=== PATIENT | male | born 1980 | race Caucasian/White ===

== ENCOUNTER 2021-04-03 01:45 | Inpatient (IN) | payer OTHER ==
[2021-04-03 03:38] LABS: EOS % 1.2 % (0-4.5); HEMATOCRIT 43.5 % (35.4-49); HEMOGLOBIN 15.2 GM/dL (11.7-16.9); LYMPH % 39.4 % (8-40); MCH 31.5 pg (25.7-33.7); MCHC 34.8 g/dl (32.0-35.9); MEAN CELL VOLUME 90.3 fl (80-96); MEAN PLT VOLUME 8.5 fl (7.5-11.1); MONO % 7.5 % (3.8-10.2); NEUT % 50.9 % (42.8-82.8); PLATELET COUNT 268 10^3/uL (134-434); RBC 4.82 M/mm3 (4.00-5.60); RDW 13.9 % (11.9-15.9); WHITE BLOOD COUNT 7.9 K/mm3 (4.0-10.0)
[2021-04-03 04:02] LABS: CHLORIDE 109 mmol/L (98-107); SODIUM 140 mmol/L (136-145)
[2021-04-03 04:04] LABS: ANION GAP 4 MMOL/L (8-16); BLOOD UREA NITROGEN 9.2 mg/dL (7-18); CALCIUM 8.7 mg/dL (8.5-10.1); CO2 26 mmol/L (21-32); MAGNESIUM 2.3 mg/dL (1.8-2.4)
[2021-04-03 04:05] LABS: GLUCOSE,RANDOM 75 mg/dL (74-106)
[2021-04-03 04:07] LABS: CREATININE 0.8 mg/dL (0.55-1.3); SGOT/AST 15 U/L (15-37); SGPT/ALT 21 U/L (13-61)
[2021-04-03 04:09] LABS: BILIRUBIN,TOTAL 0.3 mg/dL (0.2-1); TOT PROT 7.1 g/dl (6.4-8.2)
[2021-04-03 04:10] LABS: ALK PHOS 107 U/L (45-117)
[2021-04-03 04:17] LABS: URINE APPEARANCE CLEAR; URINE BILIRUBIN NEGATIVE (NEGATIVE); URINE COLOR YELLOW; URINE GLUCOSE (UA) NEGATIVE (NEGATIVE); URINE KETONE NEGATIVE (NEGATIVE); URINE LEUK ESTERASE NEGATIVE (NEGATIVE); URINE NITRITE NEGATIVE (NEGATIVE); URINE PROTEIN NEGATIVE (NEGATIVE)
[2021-04-03 04:25] LABS: METHADONE, UR NEGATIVE (NEGATIVE); OPIATES, URI NEGATIVE (NEGATIVE); PHENCYCLIDINE,URINE NEGATIVE (NEGATIVE); URINE BENZODIAZEPINES NEGATIVE (NEGATIVE)
[2021-04-03 04:27] LABS: COCAINE, UR NEGATIVE (NEGATIVE); URINE AMPHETAMINES NEGATIVE (NEGATIVE); URINE BARBITURATES NEGATIVE (NEGATIVE)
[2021-04-03] MEDS ORDERED: PARoxetine HCL 10 MG TABLET PO SCH (11:45)
[2021-04-03] MEDS: PARoxetine HCL 20 MG TABLET PO SCH (15:15)
[2021-04-03] MEDS ORDERED: HALOPERIDOL 5 MG TABLET PO ONE (18:12)
[2021-04-03] MEDS ORDERED: LORazepam 2 MG TABLET PO ONE (18:12)
[2021-04-03] MEDS ORDERED: LORazepam 1 MG TABLET ONE (18:17)
[2021-04-03] MEDS ORDERED: PARoxetine HCL 10 MG TABLET ONE ×2 (18:17→18:19)
[2021-04-03] MEDS ORDERED: HALOPERIDOL LACTATE 5 MG/ML ONE (18:20)
[2021-04-03] MEDS ORDERED: LORazepam 1 MG TABLET PO ONE (23:29)
[2021-04-03 23:34] VITALS: BMI 25.1
[2021-04-04] MEDS ORDERED: ACETAMINOPHEN 1000 MG/100 ML VIAL IVPB ONE (02:21)
[2021-04-04] MEDS ORDERED: ACETAMINOPHEN 325 MG TABLET (FP) PO ONE (02:23)
[2021-04-04] MEDS: PARoxetine HCL 20 MG TABLET PO SCH (09:11)
[2021-04-04] MEDS ORDERED: PATIENT'S OWN MEDICATION (NON-FORMULARY) (Paroxetine Hcl [Paxil] 40 MG Tablet) PO SCH (10:00)
[2021-04-04] MEDS: ACETAMINOPHEN 325 MG TABLET (FP) PO PRN ×2 (11:31→21:34)
[2021-04-04] MEDS: LORazepam 1 MG TABLET PO PRN ×2 (11:31→18:11)
[2021-04-04] MEDS: DIVALPROEX SODIUM 250 MG TABLET E.C. PO SCH (21:36)
[2021-04-05] MEDS: LORazepam 1 MG TABLET PO PRN ×3 (00:54→22:37)
[2021-04-05] MEDS ORDERED: PT OWN MED DRAWER 7, Y5N ONE (09:58)
[2021-04-05] MEDS ORDERED: BENZTROPINE MESYLATE 1 MG TABLET PO SCH (10:00)
[2021-04-05] MEDS: DIVALPROEX SODIUM 250 MG TABLET E.C. PO SCH ×2 (10:05→22:37)
[2021-04-05] MEDS: HALOPERIDOL 5 MG TABLET PO SCH ×2 (10:05→10:12)
[2021-04-05] MEDS: PARoxetine HCL 20 MG TABLET PO SCH (10:06)
[2021-04-05] MEDS: NICOTINE 14 MG/24 HOURS TOPICAL PATCH TD SCH (14:57)
[2021-04-05] MEDS ORDERED: HALOPERIDOL 5 MG TABLET PO SCH (16:07)
[2021-04-05] MEDS: BENZTROPINE MESYLATE 0.5 MG TABLET (FP) PO SCH (18:03)
[2021-04-05] MEDS: ACETAMINOPHEN 325 MG TABLET (FP) PO PRN (20:19)
[2021-04-06] MEDS: NICOTINE 14 MG/24 HOURS TOPICAL PATCH TD SCH ×2 (00:33→09:54)
[2021-04-06] MEDS ORDERED: MELATONIN 5 MG TABLETS PO ONE (00:42)
[2021-04-06] MEDS ORDERED: PT OWN MED DRAWER 7, Y5N ONE ×2 (09:48→09:49)
[2021-04-06] MEDS: DIVALPROEX SODIUM 250 MG TABLET E.C. PO SCH ×2 (09:53→21:54)
[2021-04-06] MEDS: BENZTROPINE MESYLATE 0.5 MG TABLET (FP) PO SCH (09:55)
[2021-04-06] MEDS: PARoxetine HCL 20 MG TABLET PO SCH (09:56)
[2021-04-06] MEDS: LORazepam 1 MG TABLET PO PRN ×2 (13:21→21:54)
[2021-04-06] MEDS: ACETAMINOPHEN 325 MG TABLET (FP) PO PRN (21:53)
[2021-04-07] MEDS ORDERED: IBUPROFEN 200 MG TABLET PO ONE (00:16)
[2021-04-07] MEDS ORDERED: QUEtiapine FUMARATE 100 MG TABLET (FP) PO SCH ×2 (09:00→10:00)
[2021-04-07] MEDS: DIVALPROEX SODIUM 250 MG TABLET E.C. PO SCH ×2 (09:51→21:20)
[2021-04-07] MEDS: NICOTINE 14 MG/24 HOURS TOPICAL PATCH TD SCH (09:52)
[2021-04-07] MEDS: PARoxetine HCL 20 MG TABLET PO SCH (09:52)
[2021-04-07] MEDS: QUEtiapine FUMARATE 50 MG TABLET PO SCH ×2 (09:55→21:20)
[2021-04-07] MEDS: ACETAMINOPHEN 325 MG TABLET (FP) PO PRN (18:02)
[2021-04-07] MEDS: LORazepam 1 MG TABLET PO PRN (18:24)
[2021-04-08] MEDS: ACETAMINOPHEN 325 MG TABLET (FP) PO PRN (00:51)
[2021-04-08] MEDS: PARoxetine HCL 20 MG TABLET PO SCH (10:07)
[2021-04-08] MEDS: DIVALPROEX SODIUM 250 MG TABLET E.C. PO SCH ×2 (10:07→10:31)
[2021-04-08] MEDS: QUEtiapine FUMARATE 50 MG TABLET PO SCH ×2 (10:07→10:31)
[2021-04-08] MEDS: NICOTINE 14 MG/24 HOURS TOPICAL PATCH TD SCH (10:08)
[2021-04-08] MEDS: LORazepam 1 MG TABLET PO PRN (10:43)
[2021-04-08 13:52] VITALS: BP 133/77; PULSE 77; TEMP 98.4
== END 2021-04-08 17:30 | disposition home or self-care (01) | DRG 751 ==
LOC: JER 01:45 → JERBED 11:11 → J7W 23:09 → OBSVTOIN 04-08 10:32
DX: F23 Brief psychotic disorder (principal); F22 Delusional disorders; F19.950 Other psychoactive substance use, unspecified with psychoactive substance-induced psychotic disorder with delusions; F41.8 Other specified anxiety disorders; F29 Unspecified psychosis not due to a substance or known physiological condition; R45.1 Restlessness and agitation; F31.81 Bipolar II disorder; F11.90 Opioid use, unspecified, uncomplicated; F12.20 Cannabis dependence, uncomplicated; Z91.51 Personal history of suicidal behavior
CPT/HCPCS: 36415; 70450-TC; 80053; 80164; 80307; 81003; 83735; 84443; 85025; 93005; 93010; 99285-25; C9803; G0378; U0003; U0005